=== PATIENT | female | born 1960 | race Caucasian/White ===

== ENCOUNTER → 2017-02-19 | Outpatient (CLI) | payer BC ==
[2016-10-05 14:11] VITALS: BP 188/101
[2017-02-19 07:41] LABS: BASOPHILS % (AUTO) 0.6 % (0.2-1.0); EOSINOPHILS # (AUTO) 0.1 x10^3/uL (0.0-0.2); EOSINOPHILS % (AUTO) 1.9 % (0.9-2.9); HEMATOCRIT 42.2 % (36.0-47.0); HEMOGLOBIN 14.2 g/dL (12.0-16.0); LYMPHOCYTES # (AUTO) 3.4 X10^3/uL (1.3-2.9); LYMPHOCYTES % (AUTO) 47.1 % (21.0-51.0); MEAN CORPUSCULAR HEMOGLOBIN 29.3 pg (27.0-34.0); MEAN CORPUSCULAR HGB CONC 33.6 g/dL (33.0-35.0); MEAN CORPUSCULAR VOLUME 87.3 fL (80.0-100.0); MONOCYTES # (AUTO) 0.4 x10^3/uL (0.3-0.8); NEUTROPHILS # (AUTO) 3.2 x10^3/uL (2.2-4.8); NEUTROPHILS % (AUTO) 44.4 % (42.0-75.0); PLATELET COUNT 443 X10^3/uL (150.0-450.0); RED BLOOD COUNT 4.83 X10^6/uL (3.5-5.4); RED CELL DISTRIBUTION WIDTH 13.9 % (11.6-16.5); WHITE BLOOD COUNT 7.2 X10^3/uL (3.6-10.0)
--- NOTE | 2017-02-19 07:46 | RAD ---
HISTORY: Chronic neck pain Study: C-spine three view Comparison: None Findings: The alignment is normal. The prevertebral soft tissues are normal. The vertebral bodies are of avera ge height. The disc spaces are preserved. The posterior elements are intact. The odontoid is intact. Diffuse relatively severe bilateral facet degenerative joint disease is present. IMPRESSION: Diffuse bilateral facet degenerative joint disease Reported By:
[2017-02-19 07:54] LABS: ALANINE AMINOTRANSFERASE 33 Units/L (12-78); ALBUMIN 3.9 g/dL (3.4-5.0); ALKALINE PHOSPHATASE 55 Units/L (46-116); ASPARTATE AMINO TRANSFERASE 21 Units/L (15-37); BLOOD UREA NITROGEN 11 mg/dL (7-18); CALCIUM 9.3 mg/dL (8.5-10.1); CARBON DIOXIDE 27.6 mmol/L (21-32); CHLORIDE 105 mmol/L (98-107); COR NA(FOR HYPERGLY) 144 mmol/L (136-145); CREATININE 0.71 mg/dL (0.55-1.02); GLUCOSE 120 mg/dL (65-99); SODIUM 144 mmol/L (136-145); TOTAL PROTEIN 7.7 g/dL (6.4-8.2); eGFR BLACK RACES > 60 (>60); eGFR NON BLACK RACES > 60 (>60)
[2017-02-24 06:51] LABS: METANEPHRINE < 0.20
[2017-02-24 06:52] LABS: NORMETANEPHRINE 0.51
== END ==
LOC: LAB 06:49
PROVIDERS: ATTEND Internal Medicine
DX: I10 Essential (primary) hypertension (principal); M54.2 Cervicalgia
CPT/HCPCS: 36415; 72040; 80053; 83835; 85025

== ENCOUNTER 2017-02-22 06:43 | Emergency (ER) | payer BC ==
[2017-02-22 06:49] VITALS: BP 126/70; BMI 29.6
--- NOTE | 2017-02-22 06:53 | DR.DIZZY ---
HPI - Time seen Time seen: 06:53 - PCP Primary Care Physician: RAMO - Complaint Chief Complaint Doctor Comments: Patient presents with c/o dizziness for a prolong period of time. Patient states the she has the sensationn of the room is spinning around her. She states that since she has been treated for asthma as a child she has had tremors as long as she can remember and has attributed it to the asthma medication. She admits to ringing of the ears. Her physician started a workup of the dizziness last week (labs reviewed) negative results. Chief Complaint:: PT. C/O DIZZY SPELLS THAT BEGAN LAST WEDNESDAY. SHE HAS SEEN PCP TWICE FOR C/O. PT. HAD X-RAY AND LAB WORK HERE WEDNESDAY. PT. STATES THE DIZZINESS WAS INTERMITTENT BUT SINCE YESTERDAY AFTERNOON, IT HAS BEEN CONSTANT. PT. ALSO C /O NAUSEA. - Source History Provided: Patient - Mode of Arrival Mode of Arrival: Ambulatory - Timing Onset of Chief Complaint: 02/21/17 - Location of Weakness Weakness Location: None - Context Onset: With light exertion Does pt take pot. toxic medication?: No History of: None Stroke Symptoms: None - Modifying factors Worsens: Change in Position, Turning Head - Associated signs and symptoms Associated Signs and Symptoms: Vertigo PMH - PMH Past Medical History: Yes Past Medical History: Asthma, Hypertension, [place] Past Surgical History: Yes Surgical History: Hysterectomy Past Surgical History Comment: HERNIA REPAIR, BREAST AUGMENTATION - Family History History of Family Medical Conditions: Yes Family Medical History: Cancer, Hypertension - Social History Does patient currently use any type of tobacco product: Yes Have you used tobacco products in the last 12 months: Yes Type of Tobacco Use: Cigarettes Does any household member use tobacco: Yes Alcohol Use: None Do you use any recreational Drugs:: No Lives With: Spouse Lives Where: Home - infectious screening In the last 2 months have you had wt loss of >10#?: NO Have you had fever, night sweats or hemotysis?: No Have you traveled outside the country in the last 6 months?: No Isolation: Standard ROS - Review of Systems Constitutional: No Symptoms Reported Eyes: No Symptoms Reported (slight esotrophia of right eye) ENTM: No Symptoms Reported. negative: Ear Pain, Ear Discharge Respiratoy: No Symptoms Reported Cardiovascular: No Symptoms Reported Gastrointestinal/Abdominal: No Symptoms Reported Genitourinary: No Symptoms Reported Neurological: No Symptoms Reported, Anxiety, Dizziness, Other (ringing of ears) Musculoskeletal: No Symptoms Reported (tremors) Integumentary: No Symptoms Reported Hematologic/Lymphatic: No Symptoms Reported Endocrine: No Symptoms Reported Psychiatric: No Symptoms Reported All Other Systems: Reviewed and Negative PE - Vital Signs Vitals: Temperature 99.3 F Pulse Rate 103 Respiratory Rate 17 Blood Pressure 126/70 O2 Sat by Pulse Oximetry 97 - General Limitations: Language Barrier General Appearance: Alert, In No Apparent Distress - Head Head Exam: Normal Inspection, Atraumatic - Eyes Eye exam: Nystagmus (right eye) Pupils: Regular, Round: Bilateral Sclera/Conjunctival: Normal Inspection: Bilateral Anterior Chamber: Normal Inspection: Bilateral Posterior Chamber: Deferred: Bilateral - ENT ENT Exam: Other (left retracted) - Neck Neck Exam: Normal Inspection, Full ROM - Chest Chest Inspection: Normal Inspection - Respiratory Respiratory Exam: Normal Lung Sounds Bilat Respiratory Exam: Bilateral Clear to Auscultation - Cardiovascular Cardiovascular Exam: Regular Rate - Abdominal Exam Abdominal Exam: Normal Inspection Abdominal Tenderness: negative: RUQ, RLQ, LUQ, LLQ, Epigastrium, Suprapubic, Diffuse, Mild, Moderate, Severe, Other - Rectal Rectal Exam: Deferred - Extremeties Extremities Exam: Normal Inspection, Full ROM - Back Back Exam: Normal Inspection, Full ROM - Neurologic Neurological Exam: Alert, Oriented X3, CN II-XII Intact Speech: Fluid Speech Cranial Nerve Exam: EOM Function (II, III, IV, ): Normal Cerebellar Function: Finger to Nose: Normal Cerebellar Function: Normal Gait Motor Strength - LUE: 3/5 Motor Strength - RUE: 3/5 Motor Strength - LLE: 3/5 - Psychiatric Psychiatric Exam: Normal Affect, Normal Mood - Skin Skin Exam: Warm, Dry, Intact Course - Treatment Treatment: visual acuity 20/40 both, 20/25 single ROR - XRAY XRAY Interpreted by: Radiologist (CT Brain: negative) - Diagnosis Discharge Problem: Vertigo of central origin Qualifiers: Laterality: unspecified laterality Qualified Code(s): H81.49 - Vertigo of central origin, unspecified ear - Discharge Plan Condition: Stable - Follow ups/Referrals Follow ups/Referrals: Deborah RALPH [Primary Care Provider] - 3 days - Instructions
--- NOTE | 2017-02-22 07:39 | CT ---
HISTORY: Dizziness Study: CT brain without contrast Comparison: None Technique: Multiple axial images of the brain were obtained from the skull base to the vertex without administr ation of IV contrast. Coronal and sagittal reformats were performed. Dose reduction procedures were used with MA/kv adjusted for body size. Findings: No acute intraparenchymal hemorrhage or mass can be identified. No extra-axial fluid collections ar e seen. No alteration in the attenuation of the brain parenchyma can be identified to suggest acute or subacute ischemic change. The ventricular system is symmetric and nondilated. The extracranial structures are grossly unremarkable. IMPRESSION: No significant intracranial abnormality identified Reported By:
== END 2017-02-22 08:05 | disposition home or self-care (01) ==
LOC: ER 06:43
DX: H81.49 Vertigo of central origin, unspecified ear (principal)
CPT/HCPCS: 70450; 99282

== ENCOUNTER → 2017-03-22 | Outpatient (CLI) | payer BC ==
[2017-02-22 06:49] VITALS: BP 126/70
[2017-03-22 08:02] LABS: BLOOD UREA NITROGEN 14 mg/dL (7-18); CALCIUM 9.4 mg/dL (8.5-10.1); CARBON DIOXIDE 28.9 mmol/L (21-32); CHLORIDE 105 mmol/L (98-107); COR NA(FOR HYPERGLY) 142 mmol/L (136-145); CREATININE 0.68 mg/dL (0.55-1.02); GLUCOSE 118 mg/dL (65-99); SODIUM 142 mmol/L (136-145); T4 (THYROXINE) 10.7 ug/dL (4.7-13.3); TSH (3RD GENERATION) 0.443 uIU/mL (0.358-3.74); eGFR BLACK RACES > 60 (>60); eGFR NON BLACK RACES > 60 (>60)
== END ==
LOC: LAB 07:18
PROVIDERS: ATTEND Internal Medicine
DX: E03.8 Other specified hypothyroidism (principal); R73.9 Hyperglycemia, unspecified
CPT/HCPCS: 36415; 80048; 84436; 84443

== ENCOUNTER 2018-04-20 10:46 | Emergency (ER) | payer BC ==
[2018-04-20 10:52] VITALS: BP 127/89; BMI 29.2
[2018-04-20] MEDS ORDERED: DUONEB 0.5 MG/3 MG ONE (10:54)
--- NOTE | 2018-04-20 11:16 | DR.URIAD ---
HPI - Time Seen Time seen: 11:10 - PCP Primary Care Physician: yluy - Complaint Chief Complaint Doctors Comments: Patient presents with complaint of breathing problems. She has a driagnosis of COPD is being treated by Dr Ralph. He recently started her on nebulizer with albuterol, she is on augmentin, and had a dound of steroid. She continues to smoke one pacak per day. She denies fever. She admits to SOB. Chief Complaint:: pt stated she has been coughing and short of breath for 5 days. she has been to dr ralph and has been given steriods and antibioitcs and nothing is working. - Source History Provided: Patient - Mode of Arrival Mode of Arrival: Ambulatory - Timing Onset of Chief Complaint: 04/15/18 PMH - PMH Past Medical History: Yes Past Medical History: Asthma, Hypertension, [place] Past Surgical History: Yes Surgical History: Hysterectomy - Family History History of Family Medical Conditions: Yes Family Medical History: Cancer, Hypertension - Social History Does patient currently use any type of tobacco product: Yes Have you used tobacco products in the last 12 months: Yes Type of Tobacco Use: Cigarettes How many years tobacco product used: 25 Does any household member use tobacco: No Alcohol Use: None Do you use any recreational Drugs:: No Lives With: Family Lives Where: Home - infectious screening In the last 2 months have you had wt loss of >10#?: NO Have you had fever, night sweats or hemotysis?: No Have you traveled outside the country in the last 6 months?: No Isolation: Standard ROS - Review of Systems Eyes: No Symptoms Reported ENTM: No Symptoms Reported Respiratoy: Dry Cough, Short of Breath, Wheezing Cardiovascular: No Symptoms Reported Gastrointestinal/Abdominal: No Symptoms Reported Genitourinary: No Symptoms Reported Neurological: No Symptoms Reported Musculoskeletal: No Symptoms Reported Integumentary: No Symptoms Reported Hematologic/Lymphatic: No Symptoms Reported Endocrine: No Symptoms Reported Psychiatric: No Symptoms Reported All Other Systems: Reviewed and Negative PE - Vital Signs Vitals: Temperature 98.3 F Pulse Rate 72 Respiratory Rate 16 Blood Pressure 127/89 O2 Sat by Pulse Oximetry 93 - General General Appearance: Alert, In No Apparent Distress - Head Head Exam: Normal Inspection, Atraumatic - Eyes Eye exam: Normal Appearance, PERRL, EOMI - ENT ENT Exam: Normal Exam External Ear Exam: Normal External Inspection TM/Canal Exam: Bilateral Normal Nose Exam: Normal Nose Exam Nasal Speculum Exam: Bilateral Normal Mouth Exam: Normal Inspection Throat Exam: Normal Inspection - Neck Neck Exam: Normal Inspection - Chest Chest Inspection: Normal Inspection - Respiratory Respiratory Exam: negative: Chest Wall Tenderness, Respiratory Distress Respiratory Exam: Right Decreased Breath Sounds (expiratory) - Abdominal Exam Abdominal Exam: Normal Bowel Sounds Abdominal Tenderness: negative: RUQ, RLQ, LUQ, LLQ, Epigastrium, Suprapubic, Diffuse, Mild, Moderate, Severe, Other - Extremeties Extremities Exam: Normal Inspection - Back Back Exam: Normal Inspection - Neurologic Neurological Exam: Alert, Oriented X3, CN II-XII Intact - Psychiatric Psychiatric Exam: Normal Affect, Normal Mood - Skin Skin Exam: Warm, Dry, Intact Course - Reevaluation 1st: Improved - Education/Counseling Educated On: Treatment, Diagnosis, Prognosis ROR - Labs Reviewed Result Diagrams: 04/20/18 11:13 04/20/18 11:13 Laboratory: WBC 13.3 X10^3/uL (3.6-10.0) H 04/20/18 11:13 RBC 5.05 X10^6/uL (3.5-5.4) 04/20/18 11:13 Hgb 14.9 g/dL (12.0-16.0) 04/20/18 11:13 Hct 43.8 % (36.0-47.0) 04/20/18 11:13 MCV 86.7 fL (80.0-100.0) 04/20/18 11:13 MCH 29.5 pg (27.0-34.0) 04/20/18 11:13 MCHC 34.0 g/dL (33.0-35.0) 04/20/18 11:13 RDW 14.2 % (11.6-16.5) 04/20/18 11:13 Plt Count 381 X10^3/uL (150.0-450.0) 04/20/18 11:13 MPV 7.9 fL (7.4-11.0) 04/20/18 11:13 Neut % (Auto) 60.6 % (42.0-75.0) 04/20/18 11:13 Lymph % (Auto) 34.9 % (21.0-51.0) 04/20/18 11:13 [place] % (Auto) 3.7 % (0.0-13.0) 04/20/18 11:13 Eos % (Auto) 0.0 % (0.9-2.9) L 04/20/18 11:13 Baso % (Auto) 0.8 % (0.2-1.0) 04/20/18 11:13 Neut # (Auto) 8.0 x10^3/uL (2.2-4.8) H 04/20/18 11:13 Lymph # (Auto) 4.6 X10^3/uL (1.3-2.9) H 04/20/18 11:13 [place] # (Auto) 0.5 x10^3/uL (0.3-0.8) 04/20/18 11:13 Eos # (Auto) 0.0 x10^3/uL (0.0-0.2) 04/20/18 11:13 Baso # (Auto) 0.1 X10^3/uL (0.0-0.1) 04/20/18 11:13 Absolute Nucleated RBC 0.0 /100WBC 04/20/18 11:13 D-Dimer 521 ng/mL (0-400) H* 04/20/18 11:13 Sodium 140 mmol/L (136-145) 04/20/18 11:13 Corrected Sodium 140 mmol/L (136-145) 04/20/18 11:13 Potassium 4.2 mmol/L (3.5-5.1) 04/20/18 11:13 Chloride 103 mmol/L (98-107) 04/20/18 11:13 Carbon Dioxide 28.5 mmol/L (21-32) 04/20/18 11:13 BUN 21 mg/dL (7-18) H 04/20/18 11:13 Creatinine 0.76 mg/dL (0.55-1.02) 04/20/18 11:13 Est GFR (MDRD) Af Amer > 60 (>60) 04/20/18 11:13 Est GFR (MDRD) Non-Af > 60 (>60) 04/20/18 11:13 Glucose 113 mg/dL (65-99) H 04/20/18 11:13 Calcium 9.2 mg/dL (8.5-10.1) 04/20/18 11:13 Corrected Calcium TNP 04/20/18 11:13 Total Bilirubin 0.30 mg/dL (0.2-1.0) 04/20/18 11:13 AST 9 Units/L (15-37) L 04/20/18 11:13 ALT 24 Units/L (12-78) 04/20/18 11:13 Alkaline Phosphatase 54 Units/L (46-116) 04/20/18 11:13 C-Reactive Protein 1.10 mg/L (0-3.0) 04/20/18 11:13 Total Protein 8.1 g/dL (6.4-8.2) 04/20/18 11:13 Albumin 4.1 g/dL (3.4-5.0) 04/20/18 11:13 Globulin 4.0 g/dL (2.5-4.5) 04/20/18 11:13 Albumin/Globulin Ratio 1.0 Ratio (1.1-2.1) L 04/20/18 11:13 - XRAY XRAY Interpreted by: Radiologist (Chest: No acute cardiopulmonary disease.) - Diagnosis Discharge Problem: COPD (chronic obstructive pulmonary disease) Qualifiers: COPD type: unspecified COPD Qualified Code(s): J44.9 - Chronic obstructive pulmonary disease, unspecified - Discharge Plan Condition: Stable - Follow ups/Referrals Follow ups/Referrals: Deborah RALPH [Primary Care Provider] - 3 days - Instructions
[2018-04-20 11:24] LABS: BASOPHILS # (AUTO) 0.1 X10^3/uL (0.0-0.1); BASOPHILS % (AUTO) 0.8 % (0.2-1.0); HEMATOCRIT 43.8 % (36.0-47.0); HEMOGLOBIN 14.9 g/dL (12.0-16.0); LYMPHOCYTES # (AUTO) 4.6 X10^3/uL (1.3-2.9); LYMPHOCYTES % (AUTO) 34.9 % (21.0-51.0); MEAN CORPUSCULAR HEMOGLOBIN 29.5 pg (27.0-34.0); MEAN CORPUSCULAR VOLUME 86.7 fL (80.0-100.0); MEAN PLATELET VOLUME 7.9 fL (7.4-11.0); MONOCYTES # (AUTO) 0.5 x10^3/uL (0.3-0.8); MONOCYTES % (AUTO) 3.7 % (0.0-13.0); NEUTROPHILS % (AUTO) 60.6 % (42.0-75.0); PLATELET COUNT 381 X10^3/uL (150.0-450.0); RED BLOOD COUNT 5.05 X10^6/uL (3.5-5.4); RED CELL DISTRIBUTION WIDTH 14.2 % (11.6-16.5); WHITE BLOOD COUNT 13.3 X10^3/uL (3.6-10.0)
--- NOTE | 2018-04-20 11:30 | RAD ---
HISTORY: Cough, shortness of breath Study: PA and lateral views of the chest Comparison: 10/05/2016 Findings: There is mild hyperinflation. No infiltrate, effusion or pneumothorax identified. The cardiac and med iastinal contours are within normal limits. The soft tissues are unremarkable. IMPRESSION: 1. No acute cardiopulmonary abnormality. Reported By:
[2018-04-20 11:42] LABS: ALANINE AMINOTRANSFERASE 24 Units/L (12-78); ALBUMIN 4.1 g/dL (3.4-5.0); ALKALINE PHOSPHATASE 54 Units/L (46-116); ASPARTATE AMINO TRANSFERASE 9 Units/L (15-37); BLOOD UREA NITROGEN 21 mg/dL (7-18); CALCIUM 9.2 mg/dL (8.5-10.1); CARBON DIOXIDE 28.5 mmol/L (21-32); CHLORIDE 103 mmol/L (98-107); COR NA(FOR HYPERGLY) 140 mmol/L (136-145); CREATININE 0.76 mg/dL (0.55-1.02); SODIUM 140 mmol/L (136-145); TOTAL PROTEIN 8.1 g/dL (6.4-8.2); eGFR BLACK RACES > 60 (>60); eGFR NON BLACK RACES > 60 (>60)
--- NOTE | 2018-04-20 13:20 | CT ---
HISTORY: Cough, shortness of breath, elevated D-dimer Study: CTA chest Comparison: Chest x-ray done on 04/20/2018. No prior chest CTs available for comparison. Technique: Multiple axial images of the chest were obtained from the thoracic inlet to the upper abdo men during the administration of IV contrast. In addition to standard multi planar reconstructions, M IP reconstructions were performed in axial, coronal and sagittal planes. Dose reduction techniques ut ilized automatic exposure control. Findings: There are bilateral intact appearing saline type breast implants. The mediastinum does not demonstrate significant pathological lymphadenopathy. There is no pericardi al effusion observed. The thoracic aorta is normal in its contour without evidence for aneurysmal di latation. The central pulmonary arterial system does not demonstrate central filling defects to sugg est pulmonary emboli. Evaluation of the lung parenchyma reveals bilateral cylindrical bronchiectasis. Very mild interstitia l scarring is present bilaterally. No consolidation or pleural fluid is seen.. No pulmonary nodule o r mass can be identified. The bony thorax is unremarkable in its appearance. The visualized portion s of the upper abdomen are grossly unremarkable. IMPRESSION: No evidence of thoracic aortic aneurysm or pulmonary embolus. Cylindrical bronchiectasis and mild interstitial fibrotic disease. No consolidation, adenopathy, flui d or nodule is seen. Reported By:
== END 2018-04-20 13:44 | disposition home or self-care (01) ==
LOC: ER 10:55
DX: J44.9 Chronic obstructive pulmonary disease, unspecified (principal); R06.02 Shortness of breath; J47.9 Bronchiectasis, uncomplicated
CPT/HCPCS: 36415; 71046; 71275; 80053; 85025; 85378; 86140; 96365; 96374; 99283; A4222; J7620